=== PATIENT | female | born 1995 | race Asian ===

== ENCOUNTER 2022-07-03 02:33 | Emergency (ER) | payer OTHER ==
[~2022-07-03] VITALS: Ht 154.9 cm; Wt 50.0 kg
[2022-07-03 02:58] VITALS: BP 138/70
[2022-07-03] MEDS ORDERED: DOLU50TA PO (04:47)
[2022-07-03] MEDS ORDERED: EMTR1TAB11 PO (04:47)
[2022-07-04 17:06] LABS: HIV SCREEN 4G Non Reactive (Non Reactive)
== END 2022-07-03 05:23 | disposition home or self-care (01) ==
LOC: ER 02:33
DX: S61.031A Puncture wound without foreign body of right thumb without damage to nail, initial encounter (principal); Z77.21 Contact with and (suspected) exposure to potentially hazardous body fluids; W46.1XXA Contact with contaminated hypodermic needle, initial encounter; Y93.89 Activity, other specified; Y92.89 Other specified places as the place of occurrence of the external cause; Y99.8 Other external cause status
CPT/HCPCS: 36415; 86705; 86803; 87389; 99283